=== PATIENT | male | born 1960 | race Caucasian/White ===

== ENCOUNTER 2019-08-05 13:31 | Emergency (ER) | payer BC, OTHER, SELFPAY ==
--- NOTE | ~2019-08-05 | CT_ITS ---
EXAMINATION: CT abdomen pelvis w con DATE: 08/05/2019 17:41 INDICATION: Abdominal pain TECHNIQUE: Computed tomography (CT) of the abdomen and pelvis was performed with 100 mL Omnipaque-350 intravenous contrast. Automated exposure control and iterative reconstruction technique were employe d. The dose-length product was 563.40 mGy-cm. COMPARISON: 07/01/2019 FINDINGS: Small left pleural effusion. Linear discoid atelectasis at the lingula and right lower lobe. Addition al peripheral consolidation with adjacent architectural distortion demonstrating volume loss likely r elated to round atelectasis related to treatment for a prior lung cancer positioned slightly more cep halad in the nonvisualized lung. Heart size is normal. No pericardial effusion or right-sided pleural effusion. Indeterminant 2.0 and 1.0 cm low-attenuation lesions in segments IVb and 5 of the liver which could r epresent hemangiomas or metastatic disease. Gallbladder, spleen, bilateral adrenal glands are normal. Bilateral low-attenuation renal cysts the larger on the left measuring 3.2 cm maximal diameter. Again seen is a subtle approximately 1.5 cm region of decreased attenuation at the body of the pancre as. Differential includes focal pancreatitis and neoplasm either benign, primary malignant or metasta tic. Mild stranding at the lesser omentum. There is an 8.7 x 3.0 x 1.8 cm loculated fluid collection along the proximal greater curvature of the stomach without organized peripherally enhancing wall. Pe r discussion with Dr. Hinojosa the patient had recent endoscopic ultrasound biopsy of the pancreatic l esion which appeared suspicious for malignancy and inflammatory stranding and fluid collection likely related to the procedure. No free intraperitoneal gas. Remainder of the bowels including the appendix are normal. Bladder is normal. Trace amount of free fl uid in the deep pelvis. No pathologically enlarged abdominal or pelvic lymphadenopathy. Mild scattere d degenerative skeletal changes. IMPRESSION: 1. Loculated fluid collection along the greater curvature of the stomach and mild plantar changes at the lesser omentum likely related to recent endoscopic biopsy of an adjacent 1.5 cm low-attenuation l esion in the body of the pancreas suspicious for malignancy either primary or metastatic. 2. Couple small hypoenhancing hepatic lesions which could represent hemangiomas or metastatic disease . 3. Small left pleural effusion with adjacent round atelectasis in the left lower lobe which may be re lated to treatment of a nonvisualized adjacent reported prior lung cancer. Reviewed, dictated and finalized at location A. OR FINANCIAL ACCOUNTANT IMPRESSION: 1. Loculated fluid collection along the greater curvature of the stomach and mi ld plantar changes at the lesser omentum likely related to recent endoscopic bi opsy of an adjacent 1.5 cm low-attenuation lesion in the body of the pancreas s uspicious for malignancy either primary or metastatic. 2. Couple small hypoenhancing hepatic lesions which could represent hemangiomas or metastatic disease. 3. Small left pleural effusion with adjacent round atelectasis in the left lowe r lobe which may be related to treatment of a nonvisualized adjacent reported p rior lung cancer.
[2019-08-05 15:52] VITALS: BP 109/80; PULSE 92; RESP 18; TEMP 36.8; O2SAT 98
--- NOTE | 2019-08-05 16:03 | ED.ABDPAIN ---
HPI - Abdominal Pain General Chief Complaint: Abdominal Pain Stated Complaint: stomach pain Time Seen by Provider: 08/05/19 16:02 Source: patient Mode of arrival: ambulatory Limitations: no limitations History of Present Illness HPI narrative: Pt is a 59 y/o male who presents to the ED with c/o generalized ABD pain since Thursday (4 days ago). Pt states that he had an EGD done on Thursday at [facility] and he has been experiencing ABD pain since then. He reports feeling bloated, but denies N/V, or a fever. He has been drinking water but has not been eating. He has not taken any pain medicine. MD elicited complaint: abdominal pain Pertinent past history: other (EGD 4 days ago) Onset (ago): day(s) (4) Pain Consistency: constant Location: diffuse Context: confirms other (EGD 4 days ago) Associated symptoms: other (bloated) Related Data Home Medications Medication Instructions Recorded Confirmed albuterol sulfate 1 - 2 puff INHALATION Q4-6H PRN 04/26/19 07/25/19 nicotine 1 patch TRANSDERMAL DAILY 04/26/19 07/25/19 tiotropium bromide 1 cap INHALATION DAILY 04/26/19 07/25/19 bismuth subsalicylate 524 mg PO Q1H PRN 05/10/19 07/25/19 [Pepto-Bismol] loperamide [Imodium A-D] 2 mg PO Q4H PRN 05/10/19 07/25/19 multivitamin 1 cap DAILY 05/10/19 07/25/19 ondansetron HCl 4 mg PO Q8H PRN 05/10/19 07/25/19 tramadol 50 mg PO Q6H PRN 05/11/19 07/25/19 potassium chloride 20 meq PO DAILY 07/25/19 07/25/19 Allergies Allergy/AdvReac Type Severity Reaction Status Date / Time No Known Allergies Allergy Verified 08/05/19 15:56 Review of Systems Review of Systems: All systems reviewed & are unremarkable except as noted in HPI and below Constitutional: Constitutional: Denies fever(s) Gastrointestinal: Gastrointestinal: Reports abdominal pain, Reports bloating, Denies nausea and Denies vomiting PMFSH Past Medical History Medical History (Updated 08/05/19 @ 18:37 by Rene C. Hobart, DO) Angina at rest Bronchitis COPD (chronic obstructive pulmonary disease) Diabetes mellitus Hepatitis Left tibial fracture Lung cancer Pneumonia Psoriasis Sleep apnea Surgical History Surgical History (Updated 08/05/19 @ 16:45 by Bebeto Jeffries) H/O bilateral cataract extraction H/O inguinal hernia repair History of esophagogastroduodenoscopy (EGD) Social History Social History (Updated 08/05/19 @ 16:44 by Bebeto Jeffries) Smoking status: Never smoker Exam Narrative: Exam Narrative: APPEARANCE: No acute distress, nontoxic, resting in bed HEENT: Normocephalic, atraumatic, OMM RESPIRATORY: No respiratory distress, clear to auscultation bilaterally with no rhonchi wheezing or rales CARDIOVASCULAR: RRR s murmur ABDOMINAL: Soft, nondistended, tender palpation epigastric, right upper quadrant left upper quadrant, no tenderness right lower quadrant left lower quadrant, no rebound or guarding MUSCULOSKELETAl: Moves all extremities. No clubbing, cyanosis or edema. NEURO: Awake and alert. Following commands, speech normal, no focal deficits SKIN:: Warm, dry. Normal Color PSYCHIATRIC: Normal affect/mood Course Course Emergency Course: Reviewed paperwork from patient's EGD. Patient had a EGD and biopsy of a pancreatic lesion suspected to be cancer. Was sent for cytology patient has a history of lung cancer followed by Dr. Lafleur and scheduled to follow with Dr. Lafleur for biopsy results Patient given GI cocktail with improvement in pain Patient states that they are feeling much better at this time. States abdominal pain has improved. Repeat abdominal exam shows the patient's abdomen to be soft with no surgical and present discussed with patient results of workup and diagnosis. Discussed need for follow-up with primary care physician, reasons to return to the emergency department in proper use of medication. Patient understands and agrees to current treatment plan Vital Signs Vital signs: Vital Signs Temperature 98.2 F 08/05/19 15:52 Pu
[2019-08-05 16:21] LABS: Basophils Percent Auto 0.4 % (0.2-1.2); Eosinophils Absolute Auto 0.2 K/mm3 (0-0.3); Eosinophils Percent Auto 2.6 % (0-4.4); Hematocrit 41.7 % (42.0-52.0); Hemoglobin 14.2 g/dL (14.0-18.0); Immature Granulocyte Absolute 0.02 K/mm3 (0.00-0.031); Immature Granulocyte Percent A 0.3 % (0-0.5); Lymphocytes Absolute Auto 1.48 K/mm3 (0.9-3.2); Lymphocytes Percent Auto 20.5 % (18.3-44.2); Mean Corpuscular HGB Conc 34.1 g/dl (32-36); Mean Corpuscular Hemoglobin 32.1 pg (26-34); Mean Corpuscular Volume 94.3 fl (80-100); Mean Platelet Volume 10.2 fl (7.4-10.4); Monocytes Absolute Auto 0.6 K/mm3 (0.1-0.6); Monocytes Percent Auto 7.6 % (2.6-8.5); Neutrophils Percent Auto 68.6 % (45.5-73.1); Platelet Count Result 248 k/mm3 (150-375); Red Blood Count 4.42 M/mm3 (4.6-6.20); Red Cell Distribution Width 12.2 % (11.5-14.5); White Blood Count 7.2 K/mm3 (4.5-10.0)
[2019-08-05] MEDS: SODIUM CHLORIDE 0.9% IV 1,000 ML 999 ML IV CONT (16:21)
[2019-08-05 16:33] LABS: Alanine Aminotransferase 15 U/L (4-50); Alkaline Phosphatase 100 U/L (38-126); Aspartate Amino Transferase 18 U/L (17-59); Bilirubin,Total 0.5 mg/dL (0.2-1.3); Blood Urea Nitrogen 7 mg/dL (9-20); Calcium 9.2 mg/dL (8.4-10.2); Carbon Dioxide 25 mmol/L (22-30); Chloride 99 mmol/L (98-107); Estimated CRCL calculation 98 ml/min; Estimated Glomerular Filt Rate > 60; Glucose 94 mg/dL (75-110); Lipase 300 U/L (23-300); Potassium 4.3 mmol/L (3.4-5.0); Sodium 136 mmol/L (137-145)
[2019-08-05 16:36] LABS: Prothrombin Time 12.9 Seconds (11.1-14.7)
[2019-08-05 16:37] LABS: Partial Thromboplastin Time 37.9 SECONDS (22.3-36.8)
[2019-08-05 16:38] LABS: Add Urine Microscopic? YES; Appearance Urine Clear (Clear); Bacteria Urine Trace /hpf; Bilirubin Urine Negative (Negative); Blood Urine Negative (Negative); Color Urine Amber (Yellow); Glucose Urine UA Negative (Negative); Ketones Urine Trace mg/dL (Negative); Leukocyte Esterase Ur Negative LEU/UL (Negative); Mucus Urine Heavy /lpf; Nitrate Urine Negative (Negative); Protein Urine 1+ mg/dL (Negative); RBC Urine 0-2 /hpf (0-2); Specific Grav Ur 1.024 (1.001-1.035); WBC Urine 0-3 /hpf
[2019-08-05 19:08] VITALS: BP 115/78; PULSE 84; RESP 18; O2SAT 98
--- NOTE | 2019-08-11 13:15 | PC.NURSE ---
LATE ENTRY This note is being entered to document information to the patient's record. The following information was omitted on [08/05/2019], by [Katja Travis]. NS stopped at [id number]
== END 2019-08-05 19:10 | disposition home or self-care (01) ==
PROVIDERS: Emergency Provider Emergency Medicine; PCP Family Medicine
DX: R10.84 Generalized abdominal pain (principal); J44.9 Chronic obstructive pulmonary disease, unspecified; E11.9 Type 2 diabetes mellitus without complications; G47.30 Sleep apnea, unspecified; K86.9 Disease of pancreas, unspecified; N28.9 Disorder of kidney and ureter, unspecified; Z85.118 Personal history of other malignant neoplasm of bronchus and lung
CPT/HCPCS: 36415; 74177; 80053; 81001; 83690; 85025; 85610; 85730; 96361; 96374; 99284; A9270; J0131; J7030; Q9967

== ENCOUNTER → 2019-08-29 08:28 | Outpatient (CLI) | payer BC, OTHER, SELFPAY ==
--- NOTE | ~2019-08-29 | MR_ITS ---
EXAMINATION: MR brain/brain stem wo/w con DATE: 08/29/2019 09:40 INDICATION: Secondary malignant neoplasm of brain. TECHNIQUE: Magnetic resonance imaging (MRI) of the brain and brainstem was performed without and with 15 mL MultiHance intravenous contrast. Sequences included sagittal and axial T1-weighted FSE, axial diffusion-weighted FS EPI, axial T2*-weighted GRE, axial T2-weighted FLAIR Propeller, and axial T2-we ighted Propeller. Postcontrast sequences included axial, sagittal, and coronal T1-weighted FSE. Appar ent diffusion coefficient (ADC) maps were created. COMPARISON: Brain MRI 06/02/2019 FINDINGS: There is chronic encephalomalacia involving the right basal ganglia, right internal capsule , right thalamus, posterior left frontal lobe, and left occipital lobe. There is no intracranial hemo rrhage, acute infarction, or abnormal intracranial mass lesion. There is ex vacuo dilatation of anter ior body and frontal horn of right lateral ventricle and occipital horn of left lateral ventricle. Th e orbits are normal. There is mild mucosal thickening in the ethmoid sinuses. There is a trace left m astoid effusion. IMPRESSION: 1. No evidence of metastatic disease. 2. Chronic encephalomalacia involving the right basal ganglia, right internal capsule, right thalamus , posterior left frontal lobe, and left occipital lobe. Reviewed, dictated and finalized at location A. T KILN PLACER IMPRESSION: 1. No evidence of metastatic disease. 2. Chronic encephalomalacia involving the right basal ganglia, right internal c apsule, right thalamus, posterior left frontal lobe, and left occipital lobe.
[2019-08-29 09:16] LABS: Estimated Glomerular Filt Rate > 60
== END ==
PROVIDERS: Visit Provider Radiology Radiation Oncology
DX: C79.31 Secondary malignant neoplasm of brain (principal); G93.89 Other specified disorders of brain
CPT/HCPCS: 36415; 70553; A9577

== ENCOUNTER 2019-09-11 10:20 | Outpatient (CLI) | payer BC, OTHER, SELFPAY ==
--- NOTE | ~2019-09-11 | MR_ITS ---
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 The mass demonstrates delayed enhancement relative t o the remainder of the pancreas. There is a 1.0 x 0.8 cm subcapsular lesion in liver segment V which demonstrates slow enhancement after contrast administration. There is a small right pleural effusion. The heart size is normal. The spleen, gallbladder, and adrenal glands are normal. There is a [address] of the left kidney. The right kidney is unremarkable. No pathologically enlarged abdominal lymph n odes are identified. There are no dilated loops of bowel. IMPRESSION: 1. 1.6 cm mass of the pancreatic body, consistent with malignancy. 2. Indeterminate lesion of the right hepatic lobe which could reflect metastatic disease. Reviewed, dictated and finalized at location A. IMPRESSION: 1. 1.6 cm mass of the pancreatic body, consistent with malignancy. 2. Indeterminate lesion of the right hepatic lobe which could reflect metastati c disease.
[2019-09-11 12:23] LABS: Estimated Glomerular Filt Rate > 60
== END 2019-09-11 10:21 | disposition home or self-care (01) ==
PROVIDERS: Visit Provider Radiology Radiation Oncology
DX: C25.1 Malignant neoplasm of body of pancreas (principal)
CPT/HCPCS: 36415; 74183; A9577

== ENCOUNTER 2019-10-14 09:20 | Outpatient (CLI) | payer BC, OTHER, SELFPAY ==
--- NOTE | ~2019-10-14 | CT_ITS ---
EXAMINATION: CT chest w con DATE: 10/14/2019 10:18 INDICATION: Small cell lung cancer TECHNIQUE: Computed tomography (CT) of the chest was performed with 75 cc Omnipaque 350 intravenous c ontrast. The dose-length product was 254.72 mGy-cm. Automated exposure control and iterative reconstr uction technique were employed. COMPARISON: CT dated 07/01/2019 and 01/01/2019 FINDINGS: Heart size normal. Stable nonenlarged precarinal lymph node. Trace left pleural effusion. H eart size normal. No significant pericardial effusion. There is atherosclerosis of the aorta without aneurysm or dissection. There is emphysema. Stable peripheral consolidation left lower lobe posterior medially with adjacent air bronchograms. Calcified granuloma right upper lobe. Calcified mediastinal lymph nodes consistent with chronic granulomatous disease. No new pulmonary nodules or masses. 2.7 c m left renal cyst. Partially visualized low-density mass in the pancreas. IMPRESSION: 1. Stable left lower lobe peripheral consolidation with adjacent air bronchograms, likely fibrosis/sc arring from previous radiation therapy. Correlate clinically. 2: Partially visualized hypodense mass of the pancreatic body. Cannot exclude pancreatic adenocarcino ma. Differential diagnosis includes sequela of previous pancreatitis, metastatic disease lymphoma. 3: Small left pleural effusion. 4: Emphysema. Reviewed, dictated and finalized at location A. IMPRESSION: 1. Stable left lower lobe peripheral consolidation with adjacent air bronchogra ms, likely fibrosis/scarring from previous radiation therapy. Correlate clinica lly. 2: Partially visualized hypodense mass of the pancreatic body. Cannot exclude p ancreatic adenocarcinoma. Differential diagnosis includes sequela of previous p ancreatitis, metastatic disease lymphoma. 3: Small left pleural effusion. 4: Emphysema.
== END 2019-10-14 09:21 | disposition home or self-care (01) ==
PROVIDERS: PCP Family Medicine; Visit Provider Internal Medicine Hematology & Oncology
DX: C34.90 Malignant neoplasm of unspecified part of unspecified bronchus or lung (principal); R91.8 Other nonspecific abnormal finding of lung field; J90 Pleural effusion, not elsewhere classified; J43.9 Emphysema, unspecified
CPT/HCPCS: 71260; Q9967

== ENCOUNTER 2019-12-19 12:11 | Outpatient (CLI) | payer BC, OTHER, SELFPAY ==
--- NOTE | ~2019-12-19 | MR_ITS ---
EXAMINATION: MR brain/brain stem wo/w con EXAM DATE: 12/19/2019 13:12 INDICATION: Secondary malignancy of the brain. Follow-up exam. TECHNIQUE: Magnetic resonance imaging (MRI) of the brain/brain stem obtained without contrast. Sagit elham T1, axial diffusion, gradient echo (T2*), T1, T2, FLAIR sequences obtained. Patient was then inj ected with 15 cc intravenous Multihance contrast. Axial and coronal postcontrast T1 weighted sequence s obtained. Comparison is made to prior examination from 08/29/2019. FINDINGS: Again there are chronic right basal ganglia, internal capsular, thalamic, left posterior fr ontal lobe and left occipital lobe regions of encephalomalacia. There are no areas of restricted diff usion to suggest acute infarction. There is no acute hemorrhage seen on the T2*, a hemosiderin sensi tive sequence. No intraparenchymal brain mass. The ventricles are normal in size. There are no extr a-axial collections. Flow voids are seen in the cerebral arteries on the T2-weighted sequences consi stent with their expected patency. The orbits are unremarkable. Soft tissue is unremarkable. Ther e are no areas of abnormal enhancement on the postcontrast images. IMPRESSION: 1. No evidence of metastatic disease. 2. Chronic scattered regions of encephalomalacia unchanged. Reviewed, dictated and finalized at location B.
== END 2019-12-19 12:12 | disposition home or self-care (01) ==
PROVIDERS: PCP Family Medicine; Visit Provider Radiology Radiation Oncology
DX: C79.31 Secondary malignant neoplasm of brain (principal); R93.0 Abnormal findings on diagnostic imaging of skull and head, not elsewhere classified
CPT/HCPCS: 70553; A9577

== ENCOUNTER 2020-01-06 09:22 | Outpatient (CLI) | payer BC, OTHER, SELFPAY ==
--- NOTE | ~2020-01-06 | CT_ITS ---
EXAMINATION: CT chest abdomen pelvis w con DATE: 01/06/2020 16:47 CDT INDICATION: Small cell lung cancer TECHNIQUE: Computed tomography (CT) of the chest, abdomen, and pelvis was performed with 100 cc Omnip aque 350 intravenous contrast. The dose-length product was 809.19 mGy-cm. Automated exposure control and iterative reconstruction technique were employed. COMPARISON: CT dated 10/14/2019, 08/05/2019 and 07/01/2019 FINDINGS: CHEST CT: There is loculated small left pleural effusion with adjacent pleural thickening which has a more nodu lar configuration on the current study, particularly laterally. Cannot exclude recurrent/metastatic d isease. Heart size normal. No thoracic lymphadenopathy. Moderate atherosclerosis of the aorta without evidence for aneurysm or dissection. Calcified granuloma right upper lobe. No endobronchial lesions. Right IJ central venous catheter tip in the SVC. ABDOMEN/PELVIS CT: There is a 1.9 x 1.6 cm hypovascular lesion right hepatic lobe adjacent to the falciform ligament, ax ial image 125. This is unchanged compared with 08/05/2019. There is a 9 mm hypovascular lesion right hepatic lobe, image 140, not significantly changed allowing for differences of technique compared wit h 08/05/2019. The spleen, adrenal glands are unremarkable. There are bilateral renal cysts. There is a 2.1 x 1.0 cm hypovascular lesion of the pancreatic body, consistent with known malignancy. Nonobstr uctive bowel gas pattern. There is bladder wall thickening. Mild thoracic spondylosis. No osteolytic or osteoblastic lesions. IMPRESSION: 1. Loculated left pleural effusion with adjacent pleural thickening/nodularity, more prominent than o n prior examination. These findings may relate to previous radiation therapy, although recurrent/meta static disease is not excluded. 2: 2.1 x 1 cm hypovascular mass pancreatic body, consistent with known malignancy. 3: Hypovascular liver lesions stable compared with 08/05/2019, nonspecific. Cannot exclude metastati c disease. 4: Bladder wall thickening which may be due to cystitis or bladder obstruction. Correlate with urina lysis as clinically indicated. Reviewed, dictated and finalized at location A. IMPRESSION: 1. Loculated left pleural effusion with adjacent pleural thickening/nodularity, more prominent than on prior examination. These findings may relate to previou s radiation therapy, although recurrent/metastatic disease is not excluded. 2: 2.1 x 1 cm hypovascular mass pancreatic body, consistent with known maligna ncy. 3: Hypovascular liver lesions stable compared with 08/05/2019, nonspecific. Ca nnot exclude metastatic disease. 4: Bladder wall thickening which may be due to cystitis or bladder obstruction . Correlate with urinalysis as clinically indicated.
== END 2020-01-06 09:23 | disposition home or self-care (01) ==
PROVIDERS: PCP Family Medicine; Visit Provider Internal Medicine Hematology & Oncology
DX: C34.90 Malignant neoplasm of unspecified part of unspecified bronchus or lung (principal); J90 Pleural effusion, not elsewhere classified; K86.9 Disease of pancreas, unspecified; K76.9 Liver disease, unspecified; N32.9 Bladder disorder, unspecified
CPT/HCPCS: 71260; 74177; Q9967

== ENCOUNTER 2020-03-28 08:49 | Outpatient (CLI) | payer BC, OTHER, SELFPAY ==
--- NOTE | ~2020-03-28 | CT_ITS ---
EXAMINATION: CT chest abdomen pelvis w con DATE: 03/28/2020 09:15 INDICATION: Small cell lung cancer restaging TECHNIQUE: Computed tomography (CT) of the chest, abdomen, and pelvis was performed with 100 cc Omnip aque 350 intravenous contrast. Automated exposure control and iterative reconstruction technique were employed. Exam dose: 1046.65 mGy-cm total exam DLP. COMPARISON: 01/06/2020 CT chest abdomen pelvis FINDINGS: CHEST CT: Right Port-A-Cath catheter in superior vena cava. Normal heart size. No pericardial effusion. There is thoracic aortic and great vessel and coronary ar claire calcification. No thoracic aortic aneurysm. No hilar or mediastinal mass lesion or lymphadenopathy. Emphysematous changes of the lungs are noted. There is chronic discoid atelectasis and/or scarring at the lingula and left lower lobe. Consider PET /CT imaging to exclude any residual neoplasm. No interval pulmonary infiltrate or consolidation or apparent interval pulmonary mass lesion. ABDOMEN/PELVIS CT: There are 2 stable hypoattenuating areas of the liver, one at the left lobe medial segment and the ot her in the lateral aspect of the right lower hepatic lobe, not significantly since 01/06/2020. No interval hepatic space-occupying mass lesion is evident. The gallbladder is present. No bile duct or pancreatic duct dilatation. The spleen is normal size. Stable focal area of diminished attenuation of the body of the pancreas. Normal morphology of the adrenal glands. 2.1 x 3 cm left renal exophytic cyst. Approximately 5 mm indeterminate hypoenhancing anterolateral mid to lower right renal lesion. No urinary tract calculus or hydroureteronephrosis. There is diffuse thickening of the urinary bladder wall. There is moderate prostate enlargement and c alcification. Normal appendix. No bowel obstruction, bowel wall thickening, pneumatosis or intraperitoneal free air . There is atherosclerotic calcification of the abdominal aorta, iliac arteries, calcifications at the origins of the celiac and superior mesenteric, renal and inferior mesenteric arteries. No abdominal a ortic aneurysm. No intraperitoneal or retroperitoneal or pelvic mass lesion or adenopathy or ascites. Very small fat-containing right inguinal hernia. Diffuse idiopathic skeletal hyperostosis of the thoracic spine. No suspicious osteolytic or osteoblastic lesions are noted. IMPRESSION: Emphysema Chronic discoid atelectasis and/or scarring at the lingula and left lower lobe; consider PET/CT imagi ng to exclude any recurrent or metastatic neoplasm Two stable hypoattenuating areas in the liver, unchanged since 01/06/2020 Stable hypoattenuating lesion of the body of the pancreas, not significant changed since 01/06/2020 Reviewed, dictated and finalized at Location A. Reviewed, dictated and finalized at location B. IMPRESSION: Emphysema Chronic discoid atelectasis and/or scarring at the lingula and left lower lobe; consider PET/CT imaging to exclude any recurrent or metastatic neoplasm Two stable hypoattenuating areas in the liver, unchanged since 01/06/2020 Stable hypoattenuating lesion of the body of the pancreas, not significant stover ged since 01/06/2020
== END 2020-03-28 08:50 | disposition home or self-care (01) ==
PROVIDERS: PCP Family Medicine; Visit Provider Internal Medicine Hematology & Oncology
DX: C34.90 Malignant neoplasm of unspecified part of unspecified bronchus or lung (principal); J43.9 Emphysema, unspecified; R91.8 Other nonspecific abnormal finding of lung field
CPT/HCPCS: 71260; 74177; Q9967

== ENCOUNTER 2020-06-18 10:41 | Outpatient (CLI) | payer BC, OTHER, SELFPAY ==
--- NOTE | ~2020-06-18 | CT_ITS ---
EXAMINATION: CT chest abdomen pelvis w con DATE: 06/18/2020 11:05 INDICATION: Small cell lung cancer and history of malignant neoplasm of the pancreas TECHNIQUE: Transaxial computed tomographic images of the chest, abdomen, and pelvis were obtained aft er the administration of 100 cc of Omnipaque 350 intravenous contrast. The dose-length product (DLP) was 937.20 mGy-cm. Automated exposure control and iterative reconstruction technique were employed. COMPARISON: 03/28/2020, 01/06/2020 FINDINGS: CHEST CT: There is a stable 2.2 x 1.5 cm subpleural opacity in the medial left lower lobe. An 8 mm nodule of th e left lower lobe on image 80 previously measured 6 mm. A small left pleural effusion is present. A r ight internal jugular Port-A-Cath ends with its tip in the proximal right atrium. There is no pneumot horax. Mild emphysema is noted. No pathologically enlarged thoracic lymph nodes are identified. The h eart size is normal. Calcified coronary artery atherosclerosis is noted. ABDOMEN/PELVIS CT: There is a 4.0 x 2.1 cm mass in the body of the pancreas with interval enlargement since the comparis on examination. There is slight increase in size of a hypoattenuating subcapsular lesion of the right hepatic lobe with associated capsular retraction which measures 1.7 cm in greatest dimension, previo usly 1.3 cm. The spleen, gallbladder, and adrenal glands are normal. Cysts of the kidneys measure up to 3.1 cm on the left. No pathologically enlarged abdominal or pelvic lymph nodes are identified. The re is no free intraperitoneal gas or evidence of bowel obstruction. There is calcified atherosclerosi s of the aorta and many of the other arteries. IMPRESSION: 1. Enlarging left lower lobe nodule, adjacent to a stable subpleural nodule, concerning for recurrent or metastatic malignancy. 2. Enlarging mass of the body of the pancreas, consistent with known malignancy. 3. Slight enlargement of a subcapsular lesion of the right hepatic lobe, consistent with metastatic d isease. Reviewed, dictated and finalized at location A. ETING PROJECT MANAGER IMPRESSION: 1. Enlarging left lower lobe nodule, adjacent to a stable subpleural nodule, co ncerning for recurrent or metastatic malignancy. 2. Enlarging mass of the body of the pancreas, consistent with known malignancy . 3. Slight enlargement of a subcapsular lesion of the right hepatic lobe, consis tent with metastatic disease.
== END 2020-06-18 10:42 | disposition home or self-care (01) ==
LOC: ANHIMG 10:43
PROVIDERS: PCP Family Medicine; Visit Provider Internal Medicine Hematology & Oncology
DX: C34.90 Malignant neoplasm of unspecified part of unspecified bronchus or lung (principal); R91.1 Solitary pulmonary nodule; K86.9 Disease of pancreas, unspecified; K76.9 Liver disease, unspecified
CPT/HCPCS: 71260; 74177; Q9967

== ENCOUNTER 2020-08-08 10:31 | Emergency (ER) | payer BC, OTHER, SELFPAY ==
[2020-08-08] VITALS (18 sets, daily range): BP systolic 107–141; BP diastolic 62–89; PULSE 64–86; RESP 17–24; TEMP 36.6; O2SAT 95–100
--- NOTE | ~2020-08-08 | CT_ITS ---
EXAMINATION: CTA chest PE protocol DATE: 08/08/2020 14:59 RN REGISTRY INDICATION: Lung cancer. Chest pain and dyspnea. TECHNIQUE: Computed tomographic angiography (CTA) of the chest was performed with 100 mL Omnipaque-35 0 intravenous contrast. The dose-length product was 578.91 mGy-cm. Maximum intensity projection 3D-re constructions of the aorta and other arteries were constructed by the technologist on a separate work station. Automated exposure control and iterative reconstruction technique were employed. COMPARISON: CT dated 06/18/2020. FINDINGS: Evaluation of lower lobe peripheral pulmonary arteries limited by motion. No large central pulmonary embolism. Heart size is normal. Trace left pleural effusion. No thoracic lymphadenopathy. T here is atherosclerosis of the aorta without aneurysm. There is slight interval decrease in size of l eft lower lobe nodule measuring 2 x 1.7 cm compared with 2.1 x 1.9 cm on prior examination. Adjacent nodule in the left lower lobe is decreased in size now measuring 7 mm compared with 12 mm on prior ex amination. There is lingular atelectasis/scarring. There is emphysema. Subtle hypodense lesion of the right hepatic lobe measures approximately 1.6 cm, consistent with metastatic disease. Hypodense lesi on of the pancreatic body is not well visualized without contrast. There is a left renal cyst. IMPRESSION: 1. No evidence for large central pulmonary embolism. Evaluation of the peripheral lower lobe pulmonar y arteries limited by motion. 2: Decreased size of left lower lobe nodules, possibly interval response to therapy. 3: Trace left pleural effusion. 4: Hypodense 1.6 cm lesion right hepatic lobe not well visualized without contrast, although consiste nt with metastatic disease. Reviewed, dictated and finalized at location B. REGISTRY IMPRESSION: 1. No evidence for large central pulmonary embolism. Evaluation of the peripher al lower lobe pulmonary arteries limited by motion. 2: Decreased size of left lower lobe nodules, possibly interval response to the rapy. 3: Trace left pleural effusion. 4: Hypodense 1.6 cm lesion right hepatic lobe not well visualized without contr ast, although consistent with metastatic disease.
--- NOTE | ~2020-08-08 | XR_ITS ---
EXAMINATION: XR chest 1V portable INDICATION: Chest pain, history of lung cancer TECHNIQUE: Portable AP chest at 1239 hours COMPARISON: 03/28/2019, 06/18/2020 FINDINGS: A right internal jugular Port-A-Cath ends with its tip in the distal superior vena cava. Th e enlarging left lower lobe nodule described on the comparison CT is not well demonstrated. There is mild atelectasis of the lung bases. No pleural effusion or pneumothorax is identified. The cardiomedi astinal silhouette is stable. IMPRESSION: 1. Mild atelectasis of the lung bases. Reviewed, dictated and finalized at location A. SH PRODUCTION MANAGER
--- NOTE | 2020-08-08 10:35 | ECG_ITS ---
Measurements Intervals Kevil Rate: 78 P: 48 CT: 136 QRS: 45 QRSD: 89 T: 62 QT: 351 QTc: 400 Interpretive Statements SINUS RHYTHM DELAYED PRECORDIAL R/S TRANSITION BORDERLINE ECG Electronically Signed On 08-08-2020 10:52:28 DOWEL STICKER OPERATOR by Mane Watkins D.O.
--- NOTE | 2020-08-08 11:01 | ED.GENADULT ---
HPI - General Adult General Chief complaint: Chest Pain Stated complaint: chest pressure Time Seen by Provider: 08/08/20 10:40 Source: RN notes reviewed History of Present Illness HPI narrative: Patient presents to emergency department from home for chest pain. Patient states that for the past 2 days he has been having intermittent episodes of chest pain in the lower midsternal chest. States the pain does not radiate and he describes as a burning sensation consistent with heartburn he denies any fevers or chills shortness of breath abdominal pain nausea vomiting or any other symptoms he denies any previous cardiac history patient does have current lung cancer and is currently receiving chemotherapy by Dr. Lafleur denies any current pain at this time Related Data Home Medications Medication Instructions Recorded Confirmed albuterol sulfate 1 - 2 puff INHALATION Q4-6H PRN 04/26/19 08/08/20 nicotine 1 patch TRANSDERMAL DAILY 04/26/19 08/08/20 tiotropium bromide 1 cap INHALATION DAILY 04/26/19 08/08/20 bismuth subsalicylate 524 mg PO Q1H PRN 05/10/19 08/08/20 [Pepto-Bismol] loperamide [Imodium A-D] 2 mg PO Q4H PRN 05/10/19 08/08/20 multivitamin 1 cap DAILY 05/10/19 08/08/20 ondansetron HCl 4 mg PO Q8H PRN 05/10/19 08/08/20 tramadol 50 mg PO Q6H PRN 05/11/19 08/08/20 potassium chloride 20 meq PO DAILY 07/25/19 08/08/20 hydrocodone-acetaminophen [[place]] 1 tablet PO Q4H PRN 06/27/20 08/08/20 Allergies Allergy/AdvReac Type Severity Reaction Status Date / Time No Known Allergies Allergy Verified 08/08/20 10:44 Review of Systems Review of Systems: Narrative: Gen.: Denies fevers or chills ENT: Denies congestion Resp see HPI GI: Denies abdominal pain nausea, emesis or diarrhea Musculoskeletal: Denies back pain or muscle pain Neuro: Denies numbness, tingling, weakness or focal weakness Skin: Denies rash Except as documented, all other systems reviewed and negative PMFSH Past Medical History Medical History Angina at rest Bronchitis COPD (chronic obstructive pulmonary disease) Diabetes mellitus Hepatitis Left tibial fracture Lung cancer Pneumonia Psoriasis Sleep apnea Surgical History Surgical History (System 10/25/19 @ 13:22 by Qing Red) H/O bilateral cataract extraction H/O inguinal hernia repair History of esophagogastroduodenoscopy (EGD) Social History Social History Smoking status: Never smoker Gender identity (if verbalized by the patient): Male Exam Narrative: Exam Narrative: APPEARANCE: No acute distress, nontoxic, resting in bed EYES: EOMI HEENT: Normocephalic, atraumatic, OMM RESPIRATORY: No respiratory distress Clear to auscultation bilaterally with no rhonchi wheezing or rales. CARDIOVASCULAR: Regular rate and rhythm without murmurs rubs or gallops. ABDOMINAL: Soft, nontender, nondistended, no rebound or guarding MUSCULOSKELETAl: Moves all extremities. No clubbing, cyanosis or edema. NEURO: Awake and alert. Following commands, speech normal, no focal deficits SKIN:: Warm, dry. No rashes lesions or abrasions PSYCHIATRIC: Normal affect/mood, Course Course Emergency Course: Called and discussed with Dr. luther presentation work-up with 2 - troponins agrees with plan for discharge with follow-up as an outpatient Called discussed Dr. Lafleur presentation work-up updated on CTA chest agrees with plan for discharge to follow-up as an outpatient as patient call to reschedule for chemo Patient said no chest pain on the emergency department Discussed with patient results of workup and diagnosis. Discussed need for follow-up with primary care, proper use of medication, and reasons to return to the emergency department. Patient understands and agrees to current treatment plan Vital Signs Vital signs: Vital Signs Temperature 97.8 F 08/08/20 10:35 Pulse Rate 86 08/08/20 10:35
[2020-08-08 13:12] LABS: INR 0.9; Prothrombin Time 13.1 Seconds (11.1-14.7)
[2020-08-08 13:13] LABS: Partial Thromboplastin Time 29.4 SECONDS (22.3-36.8)
[2020-08-08 13:26] LABS: Troponin I < 0.012 ng/mL (0.000-0.034)
[2020-08-08 13:30] LABS: Alanine Aminotransferase 23 U/L (4-50); Albumin Level 3.5 g/dL (3.5-5.1); Alkaline Phosphatase 91 U/L (38-126); Anion Gap 4 mmol/L (8-16); Aspartate Amino Transferase 19 U/L (17-59); Bilirubin,Total 0.2 mg/dL (0.2-1.3); Blood Urea Nitrogen 8 mg/dL (9-20); Calcium 8.2 mg/dL (8.4-10.2); Carbon Dioxide 27 mmol/L (22-30); Chloride 107 mmol/L (98-107); Estimated CRCL calculation 90 ml/min; Estimated Glomerular Filt Rate > 60; Glucose 105 mg/dL (75-110); Lipase 44 U/L (23-300); Sodium 138 mmol/L (137-145)
[2020-08-08 15:36] LABS: Troponin I < 0.012 ng/mL (0.000-0.034)
[2020-08-08] MEDS: HEPARIN SOD FLUSH 500 UNITS/5 ML SYRINGE (16:22)
== END 2020-08-08 16:21 | disposition home or self-care (01) ==
PROVIDERS: Emergency Provider Emergency Medicine; PCP Internal Medicine Hematology & Oncology
DX: K21.9 Gastro-esophageal reflux disease without esophagitis (principal); R07.9 Chest pain, unspecified; D37.6 Neoplasm of uncertain behavior of liver, gallbladder and bile ducts; J44.9 Chronic obstructive pulmonary disease, unspecified; E11.9 Type 2 diabetes mellitus without complications
CPT/HCPCS: 36415; 71045; 71275; 80053; 83690; 84484; 85610; 85730; 93005; 99284; Q9967

== ENCOUNTER 2020-10-03 08:46 | Outpatient (CLI) | payer OTHER, SELFPAY ==
--- NOTE | ~2020-10-03 | CT_ITS ---
EXAMINATION: CT chest abdomen pelvis w con EXAM DATE: 10/03/2020 09:32 INDICATION: Pancreatic mass. Lung cancer. TECHNIQUE: Spiral CT of the chest, abdomen and pelvis was performed following intravenous injection o f 100 mL Omnipaque 350. Axial, coronal and sagittal images were reviewed. Coronal maximum intensity pixel images of chest reviewed. The dose-length product (DLP) for this examination was 1073.45 mGy- cm. The exposure was tailored according to patient size (auto mA exposure control), and iterative re construction (ASIR) was used as additional dose reduction technique. Comparison is made to prior exam ination from 06/18/2020. FINDINGS: CHEST: There is a right-sided Chemo-Port. There is mild to moderate emphysema. Interval decrease in size of both left lower lobe nodules compared to previous examination with the larger now measuring a bout 1.5 x 1.1 cm versus 1.8 x 2.0 on prior study, and the smaller nodule no longer identified. There is some left basilar scarring which is unchanged. No central pulmonary emboli. There are no pleural or pericardial effusions. Tracheobronchial tree is patent. There is no mediastinal, hilar or axil lucia lymphadenopathy. There is no pneumothorax. Heart normal in size. There is mild coronary ar terial calcification, arterial sclerosis. ABDOMEN PELVIS: Again there is right-sided liver peripheral lesion measuring about 1.6 cm, and a janell lar sized region in the left liver lobe medial segment at the gallbladder fossa. These could be metas tatic lesions, but are stable. Pancreatic body malignancy measuring 2.9 x 1.7 cm (previously 3.5 x 2. 1). Gallbladder is unremarkable. No biliary obstruction. Portal and splenic veins are patent. Kid neys enhance symmetrically. There is no hydronephrosis. There is a partially exophytic left renal 3 cm cyst. Adrenal glands, spleen are unremarkable. The prostate is unremarkable. The bladder is unre markable. There is no retroperitoneal or pelvic lymphadenopathy. There is mild to moderate scatter ed arteriosclerotic disease. The appendix is normal. The stomach and small bowel are unremarkable. There is expected amount of c olonic stool. No free intraperitoneal gas. There are no osteoblastic or osteolytic lesions identi fied. IMPRESSION: 1. Single remaining left lower lobe nodule, known lung cancer with decrease in size. 2. Stable liver lesions probably treated metastatic disease. 3. Pancreatic body mass with interval decrease in size. 4. Mild to moderate emphysema. Reviewed, dictated and finalized at location A.
== END 2020-10-03 08:47 | disposition home or self-care (01) ==
PROVIDERS: Visit Provider Internal Medicine Hematology & Oncology
DX: C25.1 Malignant neoplasm of body of pancreas (principal); C34.32 Malignant neoplasm of lower lobe, left bronchus or lung; K86.89 Other specified diseases of pancreas; J43.9 Emphysema, unspecified
CPT/HCPCS: 71260; 74177; Q9967

== ENCOUNTER 2021-01-15 08:14 | Outpatient (CLI) | payer OTHER, SELFPAY ==
--- NOTE | ~2021-01-15 | CT_ITS ---
EXAMINATION: CT chest abdomen pelvis w con DATE: 01/15/2021 08:37 INDICATION: Small cell lung cancer restaging TECHNIQUE: Computed tomography (CT) of the chest, abdomen, and pelvis was performed with 100 cc Omnip aque 350 intravenous contrast. Automated exposure control and iterative reconstruction technique were employed. Exam dose: 712.86 mGy-cm total exam DLP. COMPARISON: 10/03/2020 CT chest abdomen pelvis 08/08/2020 CTA chest 06/18/2020 CT chest abdomen pelvis FINDINGS: CHEST CT: There is interval resolution of previous 8 mm mass in the left lower lobe since 06/18/2020 and serial decrease in size of the prior reported 2.2 x 1.5 cm opacity in the left lower lobe. There is residua l inverted V-shaped discoid density in the left lower lobe in the region of the prior larger left low er lobe mass, which may represent residual discoid atelectasis, discoid scarring or small diminished residual malignancy. Mild to moderate emphysematous changes of the lungs are again noted. No interval pulmonary mass lesio n is detected. There is chronic discoid atelectasis or scarring of the lingula. No hilar or mediastinal mass lesion or lymphadenopathy. Normal heart size. No pericardial or pleural effusion. ABDOMEN/PELVIS CT: Approximately 2 cm hypoattenuating lesion of the inferomedial margin of the medial segment of the lef t hepatic lobe and approximately 1.5 cm hypoattenuating lesion of the lateral aspect of the right hep atic lobe. Approximately 1.9 x 3.5 cm mass of the body of the pancreas, stable or mildly diminished in size sinc e 06/18/2020. Normal morphology of the adrenal glands. 8 mm right renal cyst. 3 cm left renal cyst. No urinary tract calculus or hydroureteronephrosis. Mild prostate enlargement and calcification. There is calcification of the abdominal aorta and proximal renal arteries. No abdominal aortic aneury sm. No intraperitoneal or retroperitoneal or pelvic mass lesion or adenopathy or ascites. Normal appendix. No bowel obstruction, bowel wall thickening, pneumatosis or intraperitoneal free air . No suspicious osteolytic or osteoblastic lesions are noted. IMPRESSIONS: Interval resolution of previous 8mm left lower lobe nodule Diminished size or resolution of previous 2.2 x 1.5 cm left lower lobe mass; there is inverted V-shap ed discoid atelectasis or scarring in this area. Small amount of residual malignancy is not excluded. Stable or mildly diminished mass of the body of the pancreas Stable hepatic hypodensities; MR imaging may be helpful for further evaluation of these Reviewed, dictated and finalized at Location A. Reviewed, dictated and finalized at location A. IMPRESSIONS: Interval resolution of previous 8mm left lower lobe nodule Diminished size or resolution of previous 2.2 x 1.5 cm left lower lobe mass; th ere is inverted V-shaped discoid atelectasis or scarring in this area. Small am ount of residual malignancy is not excluded. Stable or mildly diminished mass of the body of the pancreas Stable hepatic hypodensities; MR imaging may be helpful for further evaluation of these
== END 2021-01-15 08:15 | disposition home or self-care (01) ==
LOC: ANHIMG 08:18
PROVIDERS: Visit Provider Internal Medicine Hematology & Oncology
DX: C34.90 Malignant neoplasm of unspecified part of unspecified bronchus or lung (principal); R91.8 Other nonspecific abnormal finding of lung field; K86.9 Disease of pancreas, unspecified; R93.2 Abnormal findings on diagnostic imaging of liver and biliary tract
CPT/HCPCS: 71260; 74177; Q9967

== ENCOUNTER 2021-04-08 08:52 | Outpatient (CLI) | payer OTHER, SELFPAY ==
--- NOTE | ~2021-04-08 | CT_ITS ---
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 Pancreatic cancer. TECHNIQUE: Computed tomography (CT) of the chest, abdomen, and pelvis was performed with 100 mL Omnip aque 350 intravenous contrast. Automated exposure control and iterative reconstruction technique were employed. The dose-length product was 873.97 mGy-cm. COMPARISON: CT chest, abdomen, and pelvis 01/15/2021 FINDINGS: CHEST CT: There is moderate emphysema. There is mild peripheral radiation fibrosis in left lower lobe and lingu la. There is mild atelectasis bilaterally. A calcified right lung nodule and calcified right hilar ly mph nodes are consistent with old granulomatous disease. There is mild pleural thickening on the left , which may be secondary to radiation therapy. No pleural effusion. The heart size is normal. There a re coronary artery calcifications. No pericardial effusion. There is a right internal jugular port wi th tip at superior cavoatrial junction. There is a sclerotic lesion involving T3 vertebral body and left posterior elements, worsened from 01/15/2021. ABDOMEN/PELVIS CT: There is a 1.4 cm mass in right hepatic lobe, increased from 0.8 cm. There is a 4.6 cm mass in right hepatic lobe, increased from 2.2 cm. There is a 4 mm cyst in left hepatic lobe. The gallbladder is no rmal. Calcifications in the spleen are consistent with old granulomatous disease. There is a 4.2 x 2. 3 cm mass in the body of the pancreas, increased from 3.5 x 1.9 cm. The adrenal glands and right kidn ey are normal. There is a 3.3 cm cyst in left kidney. The prostate is mildly enlarged. There is a sma ll right inguinal hernia containing fat. There are no dilated loops of bowel. The appendix is normal. There are no pathologically enlarged lymph nodes. There is no free intraperitoneal fluid. There is c alcified atherosclerosis of the aorta and many of the other arteries. IMPRESSION: 1. Worsened pancreatic mass, consistent with primary adenocarcinoma. 2. Worsened liver masses, consistent with metastatic disease. 3. Worsened sclerotic lesion in T3, consistent with metastatic disease. Reviewed, dictated and finalized at location A.
== END 2021-04-08 08:53 | disposition home or self-care (01) ==
LOC: ANHIMG 08:55
PROVIDERS: PCP Internal Medicine Hematology & Oncology; Visit Provider Internal Medicine Hematology & Oncology
DX: C34.90 Malignant neoplasm of unspecified part of unspecified bronchus or lung (principal); K86.2 Cyst of pancreas; R16.0 Hepatomegaly, not elsewhere classified; M89.9 Disorder of bone, unspecified
CPT/HCPCS: 71260; 74177; Q9967

== ENCOUNTER 2021-04-23 13:25 | Outpatient (CLI) | payer OTHER, SELFPAY ==
--- NOTE | ~2021-04-23 | MR_ITS ---
EXAMINATION: MR brain/brain stem wo/w con DATE: 04/23/2021 14:24 INDICATION: Small cell lung cancer. TECHNIQUE: Magnetic resonance imaging (MRI) of the brain and brainstem was performed without and with 15 mL MultiHance intravenous contrast. Sequences included sagittal and axial T1-weighted FSE, axial diffusion-weighted FS EPI, axial T2*-weighted GRE, axial T2-weighted FLAIR Propeller, and axial T2-we ighted Propeller. Postcontrast sequences included axial, sagittal, and coronal T1-weighted FSE. Appar ent diffusion coefficient (ADC) maps were created. COMPARISON: Brain MRI 12/19/2019 FINDINGS: There is chronic encephalomalacia in left occipital lobe. There is chronic encephalomalacia involving the right basal ganglia, right internal capsule, and right thalamus. There is a small area of chronic encephalomalacia in the posterior left frontal lobe. There are scattered areas of nonspec ific increased T2-weighted signal intensity in the cerebral white matter and caprice. There is no intrac ranial hemorrhage, acute infarction, or abnormal intracranial mass lesion. There is ex vacuo dilatati on of anterior body and frontal horn of right lateral ventricle. There is mild mucosal thickening in the ethmoid sinuses. The orbits are normal. The mastoid air cells are normal. IMPRESSION: 1. No evidence of metastatic disease. 2. Scattered areas of chronic encephalomalacia in the brain. 3. Worsened extensive cerebral white matter disease and pontine disease, likely changes of radiation therapy. Reviewed, dictated and finalized at location A.
== END 2021-04-23 13:26 | disposition home or self-care (01) ==
LOC: ANHIMG 13:25
PROVIDERS: PCP Internal Medicine Hematology & Oncology; Visit Provider Internal Medicine Hematology & Oncology
DX: C34.90 Malignant neoplasm of unspecified part of unspecified bronchus or lung (principal); G93.89 Other specified disorders of brain; R90.82 White matter disease, unspecified
CPT/HCPCS: 70553; A9577

== ENCOUNTER 2021-04-26 09:42 | Emergency (ER) | payer OTHER, SELFPAY ==
--- NOTE | ~2021-04-26 | XR_ITS ---
EXAMINATION: XR hip LT min 3V w AP pelvis DATE: 04/26/2021 10:13 INDICATION: Left hip pain. Fall. TECHNIQUE: An anteroposterior view of the pelvis and 3 views of left hip were obtained. COMPARISON: CT 04/08/2021 FINDINGS: Bone alignment is normal. No fracture. There is mild osteoarthritis of the hips. IMPRESSION: 1. Mild osteoarthritis of the hips. Reviewed, dictated and finalized at location A.
--- NOTE | ~2021-04-26 | CT_ITS ---
EXAMINATION: CT hip LT wo con EXAM DATE: 04/26/2021 11:16 INDICATION: left hip pain, fall, r/o occult fracture. Pancreas, liver cancer. TECHNIQUE: Spiral CT hip LT wo con was performed left hip Axial, coronal and sagittal images were re viewed. The dose-length product (DLP) for this examination was 174.83 mGy-cm. The exposure was tail ored according to patient size (auto mA exposure control), and iterative reconstruction (ASIR) was us ed as additional dose reduction technique. Comparison is made to prior examination from 04/08/2021. FINDINGS: There are no acute left hip, rami or acetabular fractures or dislocations identified. Ther e is no subcutaneous gas. The soft tissue is unremarkable. There are no radiopaque foreign bodies. Mild left hip primary osteoarthritis. IMPRESSION: No acute osseous findings. Reviewed, dictated and finalized at location B. IMPRESSION: No acute osseous findings.
[2021-04-26 09:51] VITALS: BP 118/73; PULSE 104; RESP 16; TEMP 36.6; O2SAT 97
--- NOTE | 2021-04-26 10:58 | ED.FALL ---
HPI - Fall General Chief Complaint: Fall <Halley Montes De Oca PA-C - Last Filed: 04/26/21 11:47> Stated Complaint: fall with hip injury <Halley Montes De Oca PA-C - Last Filed: 04/26/21 11:47> Time Seen by Provider: 04/26/21 10:14 <Halley Montes De Oca PA-C - Last Filed: 04/26/21 11:47> Source: patient <FANNY Lawrence Last Filed: 04/26/21 11:47> Mode of arrival: wheelchair <FANNY Lawrence Last Filed: 04/26/21 11:47> Limitations: no limitations <Halley Montes De Oca PA-C - Last Filed: 04/26/21 11:47> History of Present Illness HPI Narrative: This is a 61-year-old male that presents to the emergency department for left hip pain after a fall 2 days ago. Reports he tripped and fell. Reports falling backwards. He did not hit his head or lose consciousness. Reports since he has had pain anteriorly in the left hip. This is causing him difficulty ambulating. Pain is worse with movement and relieved with rest. Denies prodromal symptoms, neck pain, back pain, decreased range of motion, or numbness. <Halley Montes De Oca PA-C - Last Filed: 04/26/21 11:47> Related Data Home Medications: Home Medications Medication Instructions Recorded Confirmed albuterol sulfate 1 - 2 puff INHALATION Q4-6H PRN 04/26/19 04/10/21 nicotine 1 patch TRANSDERMAL DAILY 04/26/19 04/10/21 tiotropium bromide 1 cap INHALATION DAILY 04/26/19 04/10/21 bismuth subsalicylate 524 mg PO Q1H PRN 05/10/19 04/10/21 [Pepto-Bismol] loperamide [Imodium A-D] 2 mg PO Q4H PRN 05/10/19 04/10/21 multivitamin 1 cap DAILY 05/10/19 04/10/21 ondansetron HCl 4 mg PO Q8H PRN 05/10/19 04/10/21 tramadol 50 mg PO Q6H PRN 05/11/19 04/10/21 potassium chloride 20 meq PO DAILY 07/25/19 04/10/21 hydrocodone-acetaminophen [[place]] 1 tablet PO Q4H PRN 06/27/20 04/10/21 <Halely Montes De Oca PA-C - Last Filed: 04/26/21 11:47> Allergies/Adverse Reactions: Allergies Allergy/AdvReac Type Severity Reaction Status Date / Time No Known Allergies Allergy Verified 04/10/21 09:19 <Halley Montes De Oca PA-C - Last Filed: 04/26/21 11:47> Review of Systems Review of Systems: CONSTITUTIONAL: Denies fever MUSCULOSKELETAL: Reports joint pain and myalgia. Denies back pain NEUROLOGIC: Denies numbness, or weakness. <Halley Montes De Oca PA-C - Last Filed: 04/26/21 11:47> All systems reviewed & are unremarkable except as noted in HPI and below <Halley Montes De Oca PA-C - Last Filed: 04/26/21 11:47> PMFSH Past Medical History Medical History: Medical History Angina at rest Bronchitis COPD (chronic obstructive pulmonary disease) Diabetes mellitus Hepatitis Left tibial fracture Lung cancer Pneumonia Psoriasis Sleep apnea <Halley Montes De Oca PA-C - Last Filed: 04/26/21 11:47> Surgical History Surgical History: Surgical History (System 10/25/19 @ 13:22 by Qing Red) H/O bilateral cataract extraction H/O inguinal hernia repair History of esophagogastroduodenoscopy (EGD) <Halley Montes De Oca PA-C - Last Filed: 04/26/21 11:47> Social History Social History: Social History Smoking status: Never smoker Gender identity (if verbalized by the patient): Male <Halley Montes De Oca PA-C - Last Filed: 04/26/21 11:47> Exam Narrative: GENERAL: Chronically ill-appearing, well-nourished, and in no acute distress. HEAD: Normocephalic, atraumatic. EYES: PERRLA and EOMI. ENT: Nares clear, no rhinorrhea or epistaxis. Mucous membranes moist. Oropharynx without tonsillar hypertrophy exudate or other lesions. Bilateral TMs pearly villa non-bulging NECK: Supple. No adenopathy or masses. No midline cervical spine tenderness CHEST: Clear to auscultation. No respiratory distress. No wheezes rales or rhonchi HEART: Regular rate and rhythm. No murmur heard. Normal peripheral pulses. BACK: No midline thoracic or lumbar spine tendernes
[2021-04-26] MEDS: ACETAMINOPHEN 500 MG TABLET 1000 MG PO (11:33)
[2021-04-26 12:15] VITALS: BP 120/71; PULSE 81; RESP 16; O2SAT 97
== END 2021-04-26 12:16 | disposition home or self-care (01) ==
PROVIDERS: Emergency Provider Emergency Medicine; PCP Internal Medicine Hematology & Oncology
DX: S73.102A Unspecified sprain of left hip, initial encounter (principal); C34.90 Malignant neoplasm of unspecified part of unspecified bronchus or lung; J44.9 Chronic obstructive pulmonary disease, unspecified; E11.9 Type 2 diabetes mellitus without complications; Z87.01 Personal history of pneumonia (recurrent); G47.30 Sleep apnea, unspecified; Z98.42 Cataract extraction status, left eye; Z98.41 Cataract extraction status, right eye; M16.0 Bilateral primary osteoarthritis of hip; W01.0XXA Fall on same level from slipping, tripping and stumbling without subsequent striking against object, initial encounter
CPT/HCPCS: 73502; 73700; 99284; A9270

== ENCOUNTER 2021-08-01 15:55 | Observation (INO) | payer OTHER, SELFPAY ==
[2021-08-01] VITALS (20 sets, daily range): BP systolic 89–105; BP diastolic 56–74; PULSE 98–110; RESP 16–24; TEMP 36.5–36.8; O2SAT 95–99; BMI 24.8
--- NOTE | ~2021-08-01 | CT_ITS ---
EXAMINATION: CT thoracic lumbar wo con EXAM DATE: 08/01/2021 17:20 INDICATION: increased low back pain, previous lesion at t3 . TECHNIQUE: Spiral CT thoracolumbar spine was performed without contrast. Axial, coronal and sagittal images of the thoracic spine were reviewed. Axial, coronal and sagittal images of the lumbar spine we re reviewed. The dose-length product (DLP) for this examination was 1793.11 mGy-cm. The exposure was tailored according to patient size (auto mA exposure control), and iterative reconstruction (ASIR) w as used as additional dose reduction technique. Comparison is made to prior examination from . FINDINGS: THORACIC SPINE: There is increase in size of the T3 osteoblastic disease now taking up sizable portio n of this vertebral body and also extending into the posterior elements and spinous process. There is newly developed osteolytic lesion in T7 measuring about 1 cm in size. Possible subcentimeter osteoly tic lesion in C7. Possible early osteolytic disease of left 4th rib posteriorly. LUMBAR SPINE: There is new osteolytic region versus Schmorl's node at the superior endplate of L2. Mi ld loss of this vertebral body anteriorly, a subacute mild compression fracture, could be pathologica l. There are moderate-sized lower thoracic bridging endplate osteophytes. Mild to moderate lumbar spo ndylosis. The vertebral bodies are aligned in the AP dimension. No evidence of significant central ca nal stenosis. Mild thoracic facet arthropathy. Small right, trace left pleural effusion. Right-sided portacatheter. Small amount of bronchus intermedius endobronchial debris. Mild emphysema. IMPRESSION: 1. Progression of T3 metastatic lesion, suspect several other developing osseous metastatic lesions. 2. Subacute appearing mild compression of L2. 3. No acute findings. Reviewed, dictated and finalized at location G. CENTER SUPERVISOR IMPRESSION: 1. Progression of T3 metastatic lesion, suspect several other developing osseo us metastatic lesions. 2. Subacute appearing mild compression of L2. 3. No acute findings.
--- NOTE | ~2021-08-01 | CT_ITS ---
EXAMINATION: CT abdomen pelvis w con EXAM DATE: 08/01/2021 17:20 INDICATION: Worsening abdominal pain. TECHNIQUE: Spiral CT of the abdomen and pelvis was performed following intravenous injection of 100 m L Omnipaque 350. Axial, coronal and sagittal images of the abdomen and pelvis were reviewed. The do se-length product (DLP) for this examination was 661.32 mGy-cm. The exposure was tailored according to patient size (auto mA exposure control), and iterative reconstruction (ASIR) was used as additiona l dose reduction technique. Comparison is made to prior examination from 04/08/2021. FINDINGS: Significant interval progression in numerous liver metastases, now with a conglomerate frances uring 15 cm. There is pancreatic body hypodensity consistent with cancer measuring 4 cm. There are sm all nodules of soft tissue density along the peritoneum which could be peritoneal carcinomatosis. Mil d periportal edema. No biliary duct dilation. Gallbladder has expected amount of distention without c alcified cholelithiasis. There is small to moderate amount of ascites, mostly in the pelvis. Kidneys enhance symmetrically. No hydronephrosis. Mild aortic arterial sclerotic disease. Prostate normal in size. No retroperitoneal lymphadenopathy. Mild sigmoid diverticulosis. No free intraperitoneal gas. T here is region of decreased density measuring 1.4 cm in the superior endplate of L2, new osteolytic d isease versus Schmorl's node. Mild subacute compression of the superior endplate. Small right pleural effusion, trace left pleural effusion. Bibasilar subsegmental atelectasis. IMPRESSION: 1. No acute intra-abdominal findings. 2. Pancreatic mass, significant progression of extensive liver metastases. 3. Development of small to moderate amount of ascites and probable peritoneal carcinomatosis. 4. L2 mild subacute compression fracture with newly developed osteolytic lesion versus Schmorl's nod e. Reviewed, dictated and finalized at location G. ER TONGER IMPRESSION: 1. No acute intra-abdominal findings. 2. Pancreatic mass, significant progression of extensive liver metastases. 3. Development of small to moderate amount of ascites and probable peritoneal carcinomatosis. 4. L2 mild subacute compression fracture with newly developed osteolytic lesio n versus Schmorl's node.
--- NOTE | 2021-08-01 16:23 | ED.GENADULT ---
HPI - General Adult General Chief complaint: Weakness Stated complaint: WEAKNESS,BACK PAIN Time Seen by Provider: 08/01/21 16:04 Source: patient, RN notes reviewed and old records reviewed History of Present Illness HPI narrative: 61-year-old male with history of long liver and pancreatic cancer presented to the emergency department for evaluation of worsening back pain and worsening generalized fatigue. Patient was also jaundice upon arrival to the emergency department. Patient was unaware of his jaundice. Patient is currently being treated by Dr. Lafleur and is still getting chemotherapy. Last treatment was thursday. Last fall was 3 weeks ago Related Data Home Medications Medication Instructions Recorded Confirmed hydrocodone-acetaminophen [[place]] 1 tablet PO Q6H PRN 08/01/21 08/01/21 levofloxacin 500 mg PO DAILY 08/01/21 08/01/21 Allergies Allergy/AdvReac Type Severity Reaction Status Date / Time No Known Allergies Allergy Verified 08/01/21 16:02 Review of Systems Review of Systems: CONSTITUTIONAL: increased gen fatigue EYES: Denies visual changes, redness, or discharge. ENT: Denies rhinorrhea, congestion, sore throat, or otalgia. CARDIOVASCULAR: Denies chest pain, palpitations, or edema. RESPIRATORY: Denies cough or dyspnea. GASTROINTESTINAL: abdominal pain GENITOURINARY: Denies dysuria or hematuria. SKIN: jaundice MUSCULOSKELETAL: worsening back pain NEUROLOGIC: Denies headache, numbness, or weakness. PSYCHIATRIC: Denies anxiety or depression. 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 Pancreatic cancer (09/2019) Status post SBRT. Psoriasis Sleep apnea Surgical History Surgical History History of esophagogastroduodenoscopy Family History Family History (Updated 08/01/21 @ 23:13 by Ignacia Kilpatrick PA-C) Other Breast cancer Lung cancer Social History Social History (Updated 08/01/21 @ 23:13 by Ignacia Kilpatrick PA-C) Social History: Surrogate decision maker: Corrine Holcomb, spouse. Code status: Full code. Smoking packs per day: 1 Smoking cigarettes per day: 20.0 Smoking status: Current every day smoker Tobacco type: cigarettes Alcohol intake: former Substance use type: marijuana Last use: 2020 Additional living arrangements comments: The patient lives with his in [place]. 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 Exam Narrative: APPEARANCE: ill appearing HEAD: normocephalic, atraumatic. EYES: PERRLA/EOMI, conjunctivae clear. jaundice NECK: Supple. No adenopathy, no masses. RESPIRATORY: Airway patent, respirations nonlabored. Clear to auscultation bilaterally, no rales, rhonchi, wheezing. CARDIOVASCULAR: Regular rate and rhythm without murmurs rubs or gallops. ABDOMINAL: Soft, mild tenderness, nondistended, normal bowel sounds MUSCULOSKELETAL: Moves all extremities. Strength/ROM intact, No edema, No calf tenderness. NEURO: Alert. Cranial nerves II through XII intact. SKIN: jaundice. PSYCHIATRIC: Normal affect/mood. Course Course Emergency Course: GI was consulted for worsening liver enzymes. Dr Theodore did not feel there was much he could offer the patient. Consultation for oncology was placed. Patient and family were updated on the plan for admission. Case was discussed with the hospitalist and patient was admitted. Vital Signs Vital signs: Vital Signs Temperature 98.2 F 08/01/21 15:54 Pulse Rate 110 H 08/01/21 15:54 Respiratory Rate 16 08/01/21 15:54 Blood Pressure 98/69 L 08/01/21 15:54 Pulse Oximetry 96 08/01/21 15:54 Temper
[2021-08-01 16:39] LABS: Basophils Percent Auto 0.2 % (0.2-1.2); Eosinophils Absolute Auto 0.1 K/mm3 (0-0.3); Eosinophils Percent Auto 0.7 % (0-4.4); Hematocrit 35.7 % (42.0-52.0); Hemoglobin 12.4 g/dL (14.0-18.0); Immature Granulocyte Absolute 0.45 K/mm3 (0.00-0.031); Immature Granulocyte Percent A 2.3 % (0-0.5); Immature Platelet Fraction Pct 9.6 % (0.9-11.2); Mean Corpuscular HGB Conc 34.7 g/dl (32-36); Mean Corpuscular Hemoglobin 30.7 pg (26-34); Mean Corpuscular Volume 88.4 fl (80-100); Monocytes Absolute Auto 1.2 K/mm3 (0.1-0.6); Monocytes Percent Auto 5.9 % (2.6-8.5); Neutrophils Absolute Auto 17.2 K/mm3 (1.3-6.7); Neutrophils Percent Auto 86.9 % (45.5-73.1); Nucleated Red Blood Cells Absolute Auto 0.2 K/mm3 (0.0-0.012); Nucleated Red Blood Cells Perc 1.2 % (0.0-0.2); Platelet Count Result 48 k/mm3 (150-375); Red Blood Count 4.04 M/mm3 (4.6-6.20); Red Cell Distribution Width 25.2 % (11.5-14.5); White Blood Count 19.8 K/mm3 (4.5-10.0)
[2021-08-01 16:45] LABS: INR 2.2; Prothrombin Time 23.5 Seconds (11.1-14.7)
[2021-08-01 16:50] LABS: Lactic Acid Reflex 1.6 mmol/L (0.7-2.1)
[2021-08-01 16:51] LABS: Alanine Aminotransferase 35 U/L (4-50); Albumin Level 2.2 g/dL (3.5-5.1); Alkaline Phosphatase 369 U/L (38-126); Anion Gap 2 mmol/L (8-16); Aspartate Amino Transferase 49 U/L (17-59); Blood Urea Nitrogen 18 mg/dL (9-20); Calcium 7.5 mg/dL (8.4-10.2); Carbon Dioxide 27 mmol/L (22-30); Chloride 100 mmol/L (98-107); Estimated CRCL calculation 89 ml/min; Estimated Glomerular Filt Rate > 60; Glucose 77 mg/dL (65-110); Potassium 3.8 mmol/L (3.4-5.0); Sodium 129 mmol/L (137-145)
[2021-08-01 16:52] LABS: Platelet Estimate Decreased (Adequate)
[2021-08-01 16:53] LABS: Anisocytosis 1+ (NORMAL); Ovalocytes 1+ (NORMAL); Target Cells 1+ (NORMAL)
[2021-08-01 17:09] LABS: Lipase 30 U/L (23-300)
--- NOTE | 2021-08-01 18:30 | PM.IMHP ---
H&P: HPI History of Present Illness Date/Time: 08/01/21 18:30 Chief Complaint: Weakness. Narrative: This is a pleasant 61-year-old male with with history of lung and pancreatic cancer who presented to the emergency department earlier today via EMS from home for evaluation of weakness. He is a patient of Dr. Lafleur since September 2018 when he was diagnosed with extensive stage small cell carcinoma of the left lung at which time he was found to have 4 cystic brain metastases for which he underwent whole-brain radiation. He was diagnosed with pancreatic cancer the following spring and was also treated with SBRT at that time. It is my understanding that more recently he was found to have metastatic disease to the liver for which he is receiving chemotherapy and it also sounds as though he had chemoembolization of a tumor in March 2021 at [facility] though that has yet to be confirmed. He was supposed to have a repeat CT of the abdomen and pelvis done within the past 1 week to evaluate response to treatment however that was rescheduled for next week. In any event, he notes increasing fatigue and weakness over the past several weeks as well as right flank and upper quadrant pain. He had been taking hydrocodone for that without a whole lot of benefit and he was prescribed morphine tablets sometime last week however that made him extremely confused and thus he stopped taking his analgesics altogether. He has also had a poor appetite and he has noticed that his urine is much darker than usual and his stools seem to be monotype caster than usual. Today his thought that he looked perhaps a bit yellow and he came in for evaluation. Pertinent labs today include a total bilirubin of 17.0, an alkaline phosphatase of 369, total protein 5.0, albumin 2.2, platelets 48, PT 23.5, INR 2.2, and a white blood cell count of 19.8. CT of the abdomen and pelvis showed no acute intra-abdominal findings but did note significant progression of extensive liver metastases and the development of a small to moderate amount of ascites and probable peritoneal carcinomatosis with L2 mild subacute compression fracture with newly developed osteolytic lesion. He is being admitted in this setting for further observation and consultation with Dr. Lafleur. He denies fever, chills, sweats, vomiting, diarrhea, chest pain, and shortness of breath. Review of Systems Review of Systems: Twelve systems were reviewed and are negative except for as per HPI. 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 Pancreatic cancer (09/2019) Status post SBRT. Psoriasis Sleep apnea Surgical History Surgical History History of esophagogastroduodenoscopy Family History Family History (Updated 08/01/21 @ 23:13 by Ignacia Kilpatrick PA-C) Other Breast cancer Lung cancer Social History Social History (Updated 08/01/21 @ 23:13 by Ignacia Kilpatrick PA-C) Social History: Surrogate decision maker: Corrine Holcomb, spouse. Code status: Full code. Smoking packs per day: 1 Smoking cigarettes per day: 20.0 Smoking status: Current every day smoker Tobacco type: cigarettes Alcohol intake: former Substance use type: marijuana Last use: 2020 Additional living arrangements comments: The patient lives with his in [place]. 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 Meds Home Medications and Allergies Home Medications Medication Instructions Recorded Confirmed Type hydrocodone-acetaminophen [[place]] 1 tablet PO Q6H PRN 08/01/21 08/01/21 History levofloxacin 500 mg PO DAILY 08/01/21 08/01/21 Histor
[2021-08-01 19:06] LABS: SARS-CoV-2 RNA PCR Negative
[2021-08-01] MEDS: SODIUM CHLORIDE 0.9% IV 1,000 ML 125 ML IV CONT (19:10)
[2021-08-01 20:46] LABS: Add Urine Microscopic? YES; Appearance Urine Clear (Clear); Bilirubin Urine 2+ (Negative); Blood Urine Negative (Negative); Color Urine Amber (Yellow); Glucose Urine UA Negative (Negative); Ketones Urine Trace mg/dL (Negative); Leukocyte Esterase Ur Negative LEU/UL (Negative); Mucus Urine Heavy /lpf; Nitrate Urine Negative (Negative); Protein Urine Negative (Negative); WBC Urine 0-3 /hpf
[2021-08-01 20:48] LABS: Specific Grav Ur 1.015 (1.001-1.035)
--- NOTE | 2021-08-01 22:52 | ADMGEN ---
This patient, Hans Jones, was admitted to 3 [facility] Surg Room 319-01. Patient/family oriented to hospital policies and general routines including ID bracelet, bed and alarms, visiting hours, pain management, procedures, bathroom and other care routines, personal items, smoking policy, room service/diet, and visiting hours. Information on how to activate the Rapid Response Team has been discussed. Patient/Family are encouraged to report perceived risks to care and to ask questions if they do not understand what they are told or what they should do.
[2021-08-02] MEDS: cefTRIAXone 2 GM in SODIUM CHLORIDE 0.9% IV 100 ML 200 ML IVPB (02:06)
[2021-08-02] MEDS: SODIUM CHLORIDE 0.9% IV 1,000 ML 80 ML IV CONT (02:10)
[2021-08-02 06:00] VITALS: BP 104/62; PULSE 92; RESP 18; TEMP 36.6; O2SAT 98
[2021-08-02 06:02] LABS: Hematocrit 29.5 % (42.0-52.0); Hemoglobin 10.4 g/dL (14.0-18.0); Immature Platelet Fraction Pct 9.8 % (0.9-11.2); Mean Corpuscular HGB Conc 35.3 g/dl (32-36); Mean Corpuscular Volume 88.1 fl (80-100); Platelet Count Result 58 k/mm3 (150-375); Red Blood Count 3.35 M/mm3 (4.6-6.20); Red Cell Distribution Width 25.1 % (11.5-14.5); White Blood Count 19.8 K/mm3 (4.5-10.0)
[2021-08-02 06:19] LABS: INR 2.3; Prothrombin Time 24.9 Seconds (11.1-14.7)
[2021-08-02 06:20] LABS: Alanine Aminotransferase 27 U/L (4-50); Albumin Level 1.9 g/dL (3.5-5.1); Alkaline Phosphatase 320 U/L (38-126); Anion Gap 0 mmol/L (8-16); Aspartate Amino Transferase 39 U/L (17-59); Bilirubin,Total 16.4 mg/dL (0.2-1.3); Blood Urea Nitrogen 18 mg/dL (9-20); Carbon Dioxide 27 mmol/L (22-30); Chloride 99 mmol/L (98-107); Estimated CRCL calculation 103 ml/min; Estimated Glomerular Filt Rate > 60; Glucose 84 mg/dL (65-110); Magnesium 1.9 mg/dL (1.6-2.3); Partial Thromboplastin Time 45.5 SECONDS (22.3-36.8); Potassium 3.5 mmol/L (3.4-5.0); Sodium 126 mmol/L (137-145)
[2021-08-02 06:29] LABS: CRP 12.6 mg/dL (<1.0)
[2021-08-02 07:05] LABS: Thyroid Stimulating Hormone Reflex 0.983 uIU/mL (0.465-4.68)
--- NOTE | 2021-08-02 11:01 | PM.IMPN ---
Progress Note: A&P Assessment and Plan (1) Metastatic cancer to liver: Code(s): C78.7 - Secondary malignant neoplasm of liver and intrahepatic bile duct Status: Acute (2) Jaundice: Code(s): R17 - Unspecified jaundice Status: Acute (3) Abnormal coagulation profile: Code(s): R79.1 - Abnormal coagulation profile Status: Acute (4) Hyponatremia: Code(s): E87.1 - Hypo-osmolality and hyponatremia Status: Acute (5) Thrombocytopenia: Code(s): D69.6 - Thrombocytopenia, unspecified Status: Acute (6) Leukocytosis: Code(s): D72.829 - Elevated white blood cell count, unspecified Status: Acute (7) Compression fracture: Status: Acute (8) Metastatic cancer to spine: Code(s): C79.51 - Secondary malignant neoplasm of bone Status: Acute Additional Plan Spoke with case management this morning. Patient has already met with hospice prior to this admission but there was still discussion about continuing cancer treatment. Spoke with Oncology and current findings were discussed. There is a plan for the patient to follow up with Oncology on August 07 for an evaluation about either hospice versus continuing care. After discussing with the oncologist however, it was felt patient should strongly consider proceeding with hospice care at this time. Long discussion with the patient about options. He is agreeable to proceed with hospice. He is confused so we did contact his who also agreed to proceed with hospice. Case Management was informed and they will be contacting hospice organization to arrange for services in the home as well as to have the patient sign up for hospice. Continue comfort measures. Subjective Date/time seen: 08/02/21 11:01 Interval history: 61yo male with lung and pancreatic cancer here for weakness. Patient tolerating clear liquids. He denies any nausea or vomiting. Does have right upper quadrant abdominal pain. He is alert but confused so history is suspect. Exam Narrative: AF 97.9 104/62 92 18 98% ra Gen - NARD Chest -inspiratory crackles in the flanks. Port in the right upper chest accessed CV - RRR S1/S2 Abd -soft. Fullness in the right upper quadrant with pain. Ext - No pedal edema Neuro - Alert but confused. Psych - Nml mood but odd affect Skin - jaundice with scleral icterus. Objective Data Vital Signs Vital Signs: Vital Signs - 24 hr 08/01/21 15:54 08/01/21 16:00 08/01/21 16:01 Temperature 98.2 F Pulse Rate 110 H 109 H 110 H Respiratory Rate 16 24 H 22 H Blood Pressure 98/69 L 98/69 L Pulse Oximetry 96 95 96 08/01/21 16:15 08/01/21 16:16 08/01/21 16:30 Temperature Pulse Rate 108 H 110 H 107 H Respiratory Rate 16 22 H 22 H Blood Pressure 105/74 Pulse Oximetry 96 95 96 08/01/21 16:32 08/01/21 16:45 08/01/21 17:00 Temperature Pulse Rate 110 H 105 H Respiratory Rate 24 H 23 H Blood Pressure 95/63 L Pulse Oximetry 97 96 96 08/01/21 17:21 08/01/21 17:22 08/01/21 17:30 Temperature Pulse Rate 102 H 102 H 103 H Respiratory Rate 20 23 H 18 Blood Pressure 99/62 L Pulse Oximetry 96 96 96 08/01/21 17:31 08/01/21 17:46 08/01/21 18:00 Temperature Pulse Rate 100 102 H 100 Respiratory Rate 21 H 23 H 20 Blood Pressure 93/61 L 96/60 L 89/62 L Pulse Oximetry 96 97 95 08/01/21 18:01 08/01/21 18:15 08/01/21 18:16 Temperature Pulse Rate 100 102 H 101 H Respiratory Rate 23 H 20 23 H Blood Pressure 92/64 L Pulse Oximetry 96 96 95 08/01/21 21:10 08/01/21 22:30 08/02/21 06:00 Temperature 97.7 F 97.9 F Pulse Rate 98 92 Respiratory Rate 18 18 Blood Pressure 101/56 L 104/62 Pulse Oximetry 99 95 98 Intake/Output Intake/Output: Intake & Output 07/30/21 07/31/21 08/01/21 08/02/21 23:59 23:59 23:59 23:59 Intake Total 350 Output Total 100 Balance 250 Meds/Results Medications: Active Medications Generic Name Dose Rout
[2021-08-02 11:44] VITALS: BMI 24.8
--- NOTE | 2021-08-02 11:58 | PM.DS ---
DS: Admitting Diagnosis Discharge Date 08/02/21 Admitting Diagnosis Weakness DS: Discharge Diagnosis Discharge Diagnosis (1) Metastatic cancer to liver: Code(s): C78.7 - Secondary malignant neoplasm of liver and intrahepatic bile duct Status: Acute (2) Jaundice: Code(s): R17 - Unspecified jaundice Status: Acute (3) Abnormal coagulation profile: Code(s): R79.1 - Abnormal coagulation profile Status: Acute (4) Hyponatremia: Code(s): E87.1 - Hypo-osmolality and hyponatremia Status: Acute (5) Thrombocytopenia: Code(s): D69.6 - Thrombocytopenia, unspecified Status: Acute (6) Leukocytosis: Code(s): D72.829 - Elevated white blood cell count, unspecified Status: Acute (7) Compression fracture: Status: Acute (8) Metastatic cancer to spine: Code(s): C79.51 - Secondary malignant neoplasm of bone Status: Acute DS: Summary Hospital Course Reason for hospitalization: 61yo male with lung and pancreatic cancer here for weakness. Please see H&P for details. Hospital Course: [place] came in from home for evaluation of weakness. He has extensive stage small cell carcinoma of the left lung at which time he was found to have 4 cystic brain metastases for which he underwent whole-brain radiation. He was diagnosed with pancreatic cancer the following spring and was also treated with SBRT at that time. More recently he was found to have metastatic disease to the liver for which he is receiving chemotherapy and it also sounds as though he had chemoembolization of a tumor in March 2021 at [facility] though that has yet to be confirmed. He notes increasing fatigue and weakness over the past several weeks as well as right flank and upper quadrant pain. His thought that he appeared jaundice. Pertinent labs include a total bilirubin of 17.0, an alkaline phosphatase of 369, total protein 5.0, albumin 2.2, platelets 48, PT 23.5, INR 2.2, and a white blood cell count of 19.8. CT of the abdomen and pelvis showed no acute intra-abdominal findings but did note significant progression of extensive liver metastases and the development of a small to moderate amount of ascites and probable peritoneal carcinomatosis with L2 mild subacute compression fracture with newly developed osteolytic lesion. He was admitted for further observation and consultation with Dr. Lafleur. Spoke with case management. Patient has already met with hospice prior to this admission but there was still discussion about continuing cancer treatment. Spoke with Oncology and current findings were discussed. There was a plan for the patient to follow up with Oncology on August 07 for an evaluation about either hospice versus continuing care. After discussing with the oncologist however, it was felt patient should strongly consider proceeding with hospice care at this time. Long discussion with the patient about options. He was agreeable to proceed with hospice. He is confused so we did contact his who also agreed to proceed with hospice. Case Management was informed who contacted hospice organization and they arranged for services in the home as well as to have the patient sign up for hospice. Plan for discharge home today for hospice care. Status at Discharge Cognitive/behavioral status at discharge: Stable Time Spent with Patient Time attestation: Total time spent providing and/or coordinating discharge services: 34 minutes Time spent: Greater than 30 minutes Exam Narrative: AF 97.9 104/62 92 18 98% ra Gen - NARD Chest -inspiratory crackles in the flanks. Port in the right upper chest accessed CV - RRR S1/S2 Abd -soft. Fullness in the right upper quadrant with pain. Ext - No pedal edema Neuro - Alert but confused. Psych - Nml mood but odd affect Skin - jaundice with scleral icterus. DS: Data Data Completed and Pending Labs on day of discharge: Labs from last
== END 2021-08-02 16:50 | disposition hospice, home (50) ==
LOC: ANHED 18:10 → ANH3MEDSUR 23:27
PROVIDERS: Physician Assistant; Admitting Provider Family Medicine; Emergency Provider Emergency Medicine; PCP Internal Medicine Hematology & Oncology; Visit Provider Internal Medicine
DX: C25.9 Malignant neoplasm of pancreas, unspecified (principal); C34.92 Malignant neoplasm of unspecified part of left bronchus or lung; C79.51 Secondary malignant neoplasm of bone; C78.7 Secondary malignant neoplasm of liver and intrahepatic bile duct; C79.31 Secondary malignant neoplasm of brain; R53.1 Weakness; E87.1 Hypo-osmolality and hyponatremia; D69.6 Thrombocytopenia, unspecified; D72.829 Elevated white blood cell count, unspecified; E11.9 Type 2 diabetes mellitus without complications; J44.9 Chronic obstructive pulmonary disease, unspecified; L40.9 Psoriasis, unspecified; R79.1 Abnormal coagulation profile; G47.30 Sleep apnea, unspecified; Z87.891 Personal history of nicotine dependence; Z20.822 Contact with and (suspected) exposure to COVID-19; Z51.5 Encounter for palliative care
CPT/HCPCS: 36415; 72128; 72131; 74177; 80053; 81001; 83605; 83690; 83735; 84443; 85025; 85027; 85055; 85610; 85730; 86140; 96365; 99285; C9803; G0378; J0696; J7030; Q9967; U0003; U0005